=== PATIENT | male | born 1960 | race Caucasian/White ===

== ENCOUNTER 2018-07-11 08:55 | Emergency (ER) | payer OTHER ==
[2018-07-11 09:18] VITALS: BP 127/85
--- NOTE | 2018-07-11 10:05 | UC ---
Skin Complaint HPI - HPI Summary HPI Summary: 58 yo male presents with RIGHT hand ?abscess. He tells me that about 3 days ago he noticed a lump on his palm. Since that time has gotten larger, more red, and more painful. He is right handed. He works with his hands daily and think he may have gotten a splinter or debris under his skin in that area - causing this. Denies fever or chills - History of Current Complaint Chief Complaint: UCSkin Time Seen by Provider: 07/11/18 10:05 Stated Complaint: SKIN ISSUE Hx Obtained From: Patient Onset/Duration: Gradual Onset Onset Severity: Severe Current Severity: Severe Pain Intensity: 9 Pain Scale Used: 0-10 Numeric - Allergy/Home Medications Allergies/Adverse Reactions: Allergies Allergy/AdvReac Type Severity Reaction Status Date / Time hydrocodone Allergy GI Upset Verified 07/11/18 09:18 PMH/Surg Hx/FS Hx/Imm Hx - Additional Past Medical History Additional PMH: None - Surgical History Surgical History: Yes Surgery Procedure, Year, and Place: hip replacement - Family History Known Family History: Positive: Cardiac Disease, Hypertension - Social History Occupation: Employed Full-time Lives: With Family Alcohol Use: Daily Substance Use Type: None Smoking Status (MU): Never Smoked Tobacco Review of Systems All Other Systems Reviewed And Are Negative: Yes Constitutional: Positive: Negative Skin: Positive: Other - Lump right palm Respiratory: Positive: Negative Cardiovascular: Positive: Negative Neurovascular: Positive: Negative Musculoskeletal: Positive: Negative Neurological: Positive: Negative Psychological: Positive: Negative Physical Exam - Summary Physical Exam Summary: GENERAL: NAD. WDWN. No pain distress. SKIN: RIGHT PALM: At the web spacing between 1st and 2nd digits there is a 1.0cm area of firm fluctuance that is mildly erythematous and significantly TTP. No open wound or streaking. CHEST: No accessory muscle use. Breathing comfortably and in no distress. CV: Pulses intact. Cap refill <2seconds MSK: FROM passively at all digits without pain. NEURO: Alert. PSYCH: Age appropriate behavior. Triage Information Reviewed: Yes Vital Signs: Initial Vital Signs Temp 97.8 F 07/11/18 09:13 Pulse 75 07/11/18 09:13 Resp 18 07/11/18 09:13 BP 127/85 07/11/18 09:13 Pulse Ox 99 07/11/18 09:13 Vital Signs Reviewed: Yes Procedures - Incision and Drainage Right Hand Anesthesia: Local - lidocaine, Lidocaine Instrument(s): Scalpel - #11 Packing: Other - None Course/Dx - Course Course Of Treatment: The procedure was explained to the pt and all questions were answered. A time out was performed, witnessed, and signed. The area was cleansed with an alcohol pad. 0.5mL of 2% lidocaine without epi was administered and good anesthetization was achieved. A #11 blade was used t make a 4mm linear incision at the central most aspect of the abscess. Clear and yellow purulent material was able to be expressed. A culture of the fluid was obtained. Pt tolerated procedure well. Will start him on keflex and f/u with culture results. tdap updated today - Diagnoses Provider Diagnosis: Abscess, hand Discharge - Sign-Out/Discharge Documenting (check all that apply): Patient Departure All imaging exams completed and their final reports reviewed: No Studies - Discharge Plan Condition: Stable Disposition: HOME Prescriptions: Cephalexin CAP* [Keflex CAP*] 500 mg PO TID #21 cap Patient Education Materials: Abscess (ED) Referrals: Francisco El MD [Primary Care Provider] - Additional Instructions: If you develop a fever, shortness of breath, chest pain, new or worsening symptoms - please call your PCP or go to the ED immediately. 1) Apply a bandage to your hand until well healed 2) If you noticed increased pain, redness, swelling, or streaking into your palm , fingers, or hand - please go to the ER for further treatment - Billing Disposition and Condition Condition: STABLE Disposition: Home
[2018-07-11] MEDS ORDERED: Lidocaine 2% PF * 5 ML VIAL INJ ONE (10:10)
[2018-07-11] MEDS ORDERED: Tetan/Diph/Pertus SYR(Tdap)* 0.5 ML SYR(BOOSTRIX) use SYR IM ONE (10:10)
== END 2018-07-11 10:52 | disposition home or self-care (01) ==
LOC: UCEAST 08:55
DX: L02.511 Cutaneous abscess of right hand (principal); Z23 Encounter for immunization; Z96.649 Presence of unspecified artificial hip joint; Z88.5 Allergy status to narcotic agent
CPT/HCPCS: 10060; 87070; 87205; 87640; 87641; 90471; 90715; 99212; G0463

== ENCOUNTER 2022-04-21 10:10 | Observation (INO) ==
[~2022-04-21 10:10] MED LIST: Buffered Lidocaine 1% SYRIN 1 ml INTRADERM ONE; Famotidine IV 10 MG/ML 2 ml VIAL (20 mg) IV ONE; Lactated Ringers 1000 ml BAG 1,000 ML IV SCH
[2022-04-21] MEDS ORDERED: Famotidine IV 10 MG/ML 2 ml VIAL (20 mg) ONE (10:56)
[2022-04-21] MEDS ORDERED: ceFAZolin 2 GM PREMIX 2 GM/50 ML BAG ONE (10:56)
[2022-04-21] MEDS ORDERED: Buffered Lidocaine 1% SYRIN 1 ml ONE (11:30)
[2022-04-21] MEDS ORDERED: fentaNYL 100 mcg/2 ml 50 MCG/ML VIAL ONE ×4 (11:54→16:17)
[2022-04-21] MEDS ORDERED: Lidocaine 2% PF 5 ML VIAL ONE (11:54)
[2022-04-21] MEDS ORDERED: Midazolam 2 mg/2 ml VIAL 1 mg/ml 2 ml VIAL (2 mg) ONE (11:54)
[2022-04-21] MEDS ORDERED: Phenylephrine IV 10 MG/ML 1 ml VIAL ONE (13:43)
[2022-04-21] MEDS ORDERED: Dexamethasone IV 4 MG/ML VIAL 1 ml VIAL ONE (13:43)
[2022-04-21] MEDS ORDERED: Ondansetron 4 mg VIAL 2 MG/ML 2 ml VIAL ONE (13:43)
[2022-04-21] MEDS ORDERED: Acetaminophen IV 1 GM/100ML 1,000 MG/100 ML BAG IV ONE (13:56)
[2022-04-21] MEDS ORDERED: Propofol 10 MG/ML 20 ML BTL ONE ×4 (14:10→15:05)
[2022-04-21] MEDS ORDERED: Naloxone 0.4 mg VIAL 0.4 mg/ml 1 ml VIAL IV PRN (14:50)
[2022-04-21] MEDS ORDERED: Ondansetron ODT 4 mg TAB 4 MG TAB PO PRN (15:54)
[2022-04-21] MEDS ORDERED: Ondansetron 4 mg VIAL 2 MG/ML 2 ml VIAL IV PRN (15:54)
[2022-04-21] MEDS ORDERED: Lactulose 30 ml UDC PO PRN (15:54)
[2022-04-21] MEDS ORDERED: Magnesium Hydroxide LIQ 30 ML UDC PO PRN (15:54)
[2022-04-21] MEDS ORDERED: HYDROmorphone 1 MG/1 ML SYRINGE ONE (16:04)
[2022-04-21] MEDS: HYDROmorphone 1 MG/1 ML SYRINGE IV PRN ×2 (16:08→16:18)
[2022-04-21] MEDS: fentaNYL 100 mcg/2 ml 50 MCG/ML VIAL IV PRN ×4 (16:08→17:28)
[2022-04-21] MEDS ORDERED: Prochlorperazine 5 mg/ml 2 ml VIAL (10 mg) IV PRN (16:36)
[2022-04-21] MEDS ORDERED: Scopolamine 1 mg/72hr PATCH TRANSDERM SCH (17:00)
[2022-04-21] MEDS: Lactated Ringers 1000 ml BAG 1,000 ML IV SCH (19:33)
[2022-04-21] MEDS: ceFAZolin 1 GM ADVAN 1 GM in NS 0.9% 50 ML 50 ML IVPB SCH (21:09)
[2022-04-21] MEDS: Magnesium Hydroxide LIQ 30 ML UDC PO SCH (21:11)
[2022-04-21] MEDS: Morphine 2 MG/ML SYRINGE IV PRN (23:55)
[2022-04-22] MEDS: Lactated Ringers 1000 ml BAG 1,000 ML IV SCH (05:56)
[2022-04-22] MEDS: ceFAZolin 1 GM ADVAN 1 GM in NS 0.9% 50 ML 50 ML IVPB SCH (05:58)
[2022-04-22] MEDS: Morphine 2 MG/ML SYRINGE IV PRN (05:59)
[2022-04-22 07:50] LABS: Hematocrit 39 % (42-52); Mean Platelet Volume 10.3 fL (7.4-10.4); Platelet Count 170 10^3/uL (150-450)
[2022-04-22 08:00] LABS: Calcium 9.1 mg/dL (8.6-10.3); Creatinine, Serum 0.82 mg/dL (0.67-1.17); eGFR CKD-EPI 100.6 (>60)
[2022-04-22 08:01] LABS: Potassium 5.3 mmol/L (3.5-5.0)
[2022-04-22 08:13] VITALS: BP 108/84
[2022-04-22] MEDS ORDERED: SODIUM ZIRCONIUM CYCLOSILICATE 10 GM PACKET PO ONE (08:29)
[2022-04-22] MEDS ORDERED: Vitamin THERAPEUTIC TAB PO SCH (09:00)
[2022-04-22] MEDS ORDERED: HYDROcodone/ACETAMIN 5/325 mg TAB PO PRN (09:17)
[2022-04-22] MEDS: Magnesium Hydroxide LIQ 30 ML UDC PO SCH (09:55)
== END 2022-04-22 12:45 | disposition home or self-care (01) ==
LOC: SDS 10:10 → SSU 10:10 → EDSTATUS 11:30 → SUATTDRO 19:19
PROVIDERS: ADMIT Orthopaedic Surgery Adult Reconstructive Orthopaedic Surgery; ATTEND Internal Medicine